=== PATIENT | female | born 1990 | race Caucasian/White ===

== ENCOUNTER 2017-09-28 13:38 | Emergency (ER) | payer OTHER ==
[2017-04-18 23:32] VITALS: Wt 79.4 kg
[~2017-09-28 13:38] MED LIST: HYDR2TAB4 PO; IBUP800T37 PO; PREN-127 PO
--- NOTE | 2017-09-28 13:52 | ER Report ---
History and Physical Time Seen By MD: 13:52 Hx. of Stated Complaint: REPORTS HEAVY VAGINAL BLEEDING. FIRST PERIOD SINCE OF CHILD OF APRIL. HPI/ROS CHIEF COMPLAINT: Heavy vaginal bleeding HISTORY OF PRESENT ILLNESS: 27-year-old female patient presents to emergency room with complaint of heavy vaginal bleeding. Patient states that this is her first menstrual cycle since she gave . She states that she's been having some cramping. She states that her period started on Monday, and then last night into today has had significant amounts of bleeding. She states that she doesn't believe she is . She states she is not taking any control. Her has been gone since beginning of August as he was in training for . Patient denies any fevers, chills, nausea, vomiting. Patient did have episode of diarrhea prior to coming to the emergency room. Patient states she's had some numbness to the left arm, stating that it seems to be the fourth and fifth fingers on the left hand. Patient has not taken any medication for this. REVIEW OF SYSTEMS: Respiratory: No cough, no dyspnea. Cardiovascular: No chest pain, no palpitations. Gastrointestinal: No vomiting, no abdominal pain. Musculoskeletal: No back pain. Allergies: Coded Allergies: No Known Drug Allergies (Unverified , 04/19/17) Home Meds Active Scripts Ketorolac Tromethamine (KETOROLAC TROMETHAMINE) 10 Mg Tab, 10 MG PO Q6H, #20 TAB Prov:RAUL VUONGSSE THEO 09/28/17 Reported Medications Vits W-Ca,Fe,Fa(<1MG) ( VITAMINS) 1 Each Tablet, 1 EACH PO DAILY, TAB 04/11/17 Discontinued Scripts Ibuprofen (IBUPROFEN) 800 Mg Tablet, 1 TAB PO Q8H, #30 TAB 0 Refills Take with food every 8 hours. Prov:AMANDA ELENA MD 04/20/17 Hydromorphone Hcl (HYDROMORPHONE HCL) 2 Mg Tablet, 2-4 MG PO Q4H for PAIN, #20 TAB 0 Refills Prov:AMANDA ELENA MD 04/20/17 Past Medical/Surgical History Patient denies any pertinent medical or surgical history. Reviewed Nurses Notes: Yes Hx Smoking: No Smoking Status: Never Smoker Exposure to Second Hand Smoke?: No Constitutional Vital Sign - Last 24 Hours 3/09/28/17 09/28/17 09/28/17 13:48 14:00 14:38 15:00 Temp 98.1 Pulse 63 63 63 Resp 18 B/P (MAP) 155/78 118/76 (90) 112/66 (81) 113/73 (86) Pulse Ox 97 97 99 O2 Delivery Room Air 09/28/17 09/28/17 09/28/17 15:30 16:00 16:15 Pulse 54 55 B/P (MAP) 106/79 (88) 103/65 (78) 112/76 (88) Pulse Ox 97 98 Physical Exam General Appearance: The patient is alert, has no immediate need for airway protection and no current signs of toxicity. ENT: Tympanic membranes are pearly-lundberg, auditory canals are patent, mucous membranes are moist. Respiratory: Chest is non tender, lungs are clear to auscultation. Cardiac: regular rate and rhythm Gastrointestinal: Abdomen is soft and non tender, no masses, bowel sounds normal. Musculoskeletal: Neck: Neck is supple and non tender. Extremities have full range of motion and are non tender. Skin: No rashes or lesions. DIFFERENTIAL DIAGNOSIS: After history and physical exam differential diagnosis was considered for dysmenorrhea, threatened , abnormal menses. Medical Decision Making Data Points Result Diagram: 09/28/17 1415 09/28/17 1415 Laboratory Hematology Test 09/28/17 14:15 Red Blood Count 4.99 M/uL (4.17-5.56) Mean Corpuscular Volume 83.0 fL (80.0-96.0) Mean Corpuscular Hemoglobin 28.3 pg (26.0-33.0) Mean Corpuscular Hemoglobin Concent 34.1 g/dL (32.0-36.0) Red Cell Distribution Width 13.4 % (11.5-14.5) Mean Platelet Volume 9.9 fL (7.2-11.1) Neutrophils (%) (Auto) 68.3 % (39.4-72.5) Lymphocytes (%) (Auto) 22.4 % (17.6-49.6) Monocytes (%) (Auto) 7.0 % (4.1-12.4) Eosinophils (%) (Auto) 1.6 % (0.4-6.7) Basophils (%) (Auto) 0.7 % (0.3-1.4) Nucleated RBC Relative Count (auto) 0.0 /100WBC Neutrophils # (Auto) 6.2 K/uL (2.0-7.4) Lymphocytes # (Auto) 2.0 K/uL (1.3-3.6) Monocytes # (Auto) 0.6 K/uL (0.3-1.0) Eosinophils # (Auto) 0.1 K/uL (0.0-0.5) Basophils # (Auto) 0.1 K/uL (0.0-0.1) Nucleated RBC Absolute Count (auto) 0.00 K/uL Prothrombin Time 13.2 seconds (12.0-14.4) Prothromb Time International Ratio 1.00 Activated Partial Thromboplast Time 26 seconds (23-35) Sodium Level 141 mmol/L (137-145) Potassium Level 3.9 mmol/L (3.5-5.0) Chloride Level 104 mmol/L (98-107) Carbon Dioxide Level 24 mmol/L (22-31) Blood Urea Nitrogen 13 mg/dl (7-18) Creatinine 0.80 mg/dl (0.52-1.04) Glomerular Filtration Rate Calc > 60.0 Random Glucose 119 mg/dl (75-110) Calcium Level 9.2 mg/dl (8.4-10.2) Total Bilirubin 0.6 mg/dl (0.2-1.3) Aspartate Amino Transf (AST/SGOT) 23 U/L (0-35) Alanine Aminotransferase (ALT/SGPT) 25 U/L (0-56) Alkaline Phosphatase 79 U/L (0-126) Total Protein 7.7 gm/dl (6.3-8.2) Albumin 4.5 g/dl (3.5-5.0) Human Chorionic Gonadotropin, Qual Negative (NEGATIVE) Chemistry Test 09/28/17 14:15 White Blood Count 9.1 k/uL (4.5-11.0) Red Blood Count 4.99 M/uL (4.17-5.56) Hemoglobin 14.1 g/dL (12.0-16.0) Hematocrit 41.4 % (34.0-47.0) Mean Corpuscular Volume 83.0 fL (80.0-96.0) Mean Corpuscular Hemoglobin 28.3 pg (26.0-33.0) Mean Corpuscular Hemoglobin Concent 34.1 g/dL (32.0-36.0) Red Cell Distribution Width 13.4 % (11.5-14.5) Platelet Count 243 K/uL (150-450) Mean Platelet Volume 9.9 fL (7.2-11.1) Neutrophils (%) (Auto) 68.3 % (39.4-72.5) Lymphocytes (%) (Auto) 22.4 % (17.6-49.6) Monocytes (%) (Auto) 7.0 % (4.1-12.4) Eosinophils (%) (Auto) 1.6 % (0.4-6.7) Basophils (%) (Auto) 0.7 % (0.3-1.4) Nucleated RBC Relative Count (auto) 0.0 /100WBC Neutrophils # (Auto) 6.2 K/uL (2.0-7.4) Lymphocytes # (Auto) 2.0 K/uL (1.3-3.6) Monocytes # (Auto) 0.6 K/uL (0.3-1.0) Eosinophils # (Auto) 0.1 K/uL (0.0-0.5) Basophils # (Auto) 0.1 K/uL (0.0-0.1) Nucleated RBC Absolute Count (auto) 0.00 K/uL Prothrombin Time 13.2 seconds (12.0-14.4) Prothromb Time International Ratio 1.00 Activated Partial Thromboplast Time 26 seconds (23-35) Glomerular Filtration Rate Calc > 60.0 Calcium Level 9.2 mg/dl (8.4-10.2) Total Bilirubin 0.6 mg/dl (0.2-1.3) Aspartate Amino Transf (AST/SGOT) 23 U/L (0-35) Alanine Aminotransferase (ALT/SGPT) 25 U/L (0-56) Alkaline Phosphatase 79 U/L (0-126) Total Protein 7.7 gm/dl (6.3-8.2) Albumin 4.5 g/dl (3.5-5.0) Human Chorionic Gonadotropin, Qual Negative (NEGATIVE) Coagulation Test 09/28/17 14:15 Prothrombin Time 13.2 seconds Prothromb Time International Ratio 1.00 Activated Partial Thromboplast Time 26 seconds EKG/Imaging Imaging Transvaginal pelvic ultrasound INDICATION: Vaginal bleeding. COMPARISON: None Available FINDINGS: Uterus measures 7.7 x 3.8 x 5.3 cm. The uterus is anteverted and mildly heterogeneous. No focal abnormality. Double wall endometrial stripe measures 11.1 and heterogeneous. No fluid is identified. No focal abnormality is appreciated. There is mild amount of free fluid in the cul-de-sac. This may be physiologic. Urinary bladder is empty. Pelvic vessels appear unremarkable on this examination. Right ovary measures 2.8 x 2.5 x 2.3 cm and shows normal blood flow and contains several small follicles. Left ovary measures 2.3 x 1.9 x 1.7 cm and shows normal blood flow and contains several small follicles. No adnexal masses. IMPRESSION: 1. The endometrium is heterogeneous. No discrete fluid or focal normality. The heterogeneity could be due to patient's menstrual cycle. However a follow-up pelvic ultrasound 6 weeks can evaluate for any persistent abnormality to suggest other etiology. 2. The exam is otherwise unremarkable. Report Dictated By: Bruce Connolly at 09/28/2017 3:49 PM Report E-Signed By: Bruce Connolly at 09/28/2017 3:53 PM ED Course/Re-evaluation ED Course Patient was admitted to an exam room, history and physical for pain. Differential diagnoses were considered. On examination patient had no abdominal tenderness, lungs are clear. A CBC, CMP, hCG were done. Lab results were unremarkable. Ultrasound was done of the pelvis. It showed some heterogeneous lining the endometrium. The recommended a repeat ultrasound in 6 weeks. Patient did receive a dose of Toradol. Patient states she is feeling improved. She received a liter of normal saline. We'll go ahead and discharge patient home at this time. She states Toradol every 6 hours as needed. She is to follow-up with her c4 planner, patient does have an appointment meant on Monday. Patient is return to the emergency room if condition worsens. Patient verbalized understanding and agreement with plan. Decision to Disposition Date: Sep 28, 2017 Decision to Disposition Time: 16:00 Depart Departure Latest Vital Signs Vital Signs Date Time Temp Pulse Resp B/P (MAP) Pulse Ox O2 Delivery O2 Flow Rate FiO2 09/28/17 16:15 112/76 (88) 09/28/17 16:00 55 98 09/28/17 13:48 98.1 18 Room Air Impression: Primary Impression: Dysmenorrhea Condition: Improved Disposition: HOME OR SELF-CARE New Scripts Ketorolac Tromethamine (KETOROLAC TROMETHAMINE) 10 Mg Tab 10 MG PO Q6H, #20 TAB Prov: EMILE VUONG 09/28/17 Patient Instructions: Dysmenorrhea (ED) Additional Instructions: Get plenty of rest. Increase fluid intake. Take the Toradol as needed for severe bleeding, it is the goal to decrease bleeding. Return to the ER if condition worsens. Follow up with your [employer] Area Supervisor in the next week. Radiologist recommends repeat ultrasound in 6 weeks to make sure that the endometrium has returned to normal. Return to the ER if condition worsens. EMILE VUONG Sep 28, 2017 13:52
[2017-09-28] MEDS ORDERED: NS(*) 0.9% 1000 ML BAG 1,000 ML IV ONE (14:02)
[2017-09-28 14:43] LABS: PLATELET COUNT, AUTOMATED 243 K/uL (150-450)
[2017-09-28] MEDS ORDERED: KETOROLAC TROM 10MG TAB PO ONE (15:40)
--- NOTE | 2017-09-28 15:57 | RADIOLOGY IMAGING REPORT ---
FACILITY: [facility] PATIENT NAME: Sana Levine : 1990 MR: [id number] V: [id number] EXAM DATE: ORDERING PHYSICIAN: EMILE VUONG TECHNOLOGIST: Location: [facility] [place] Patient: Sana Levine : 1990 Visit/Account:[id number] Date of Sevice: 09/28/2017 Transvaginal pelvic ultrasound INDICATION: Vaginal bleeding. COMPARISON: None Available FINDINGS: Uterus measures 7.7 x 3.8 x 5.3 cm. The uterus is anteverted and mildly heterogeneous. No focal abnor mality. Double wall endometrial stripe measures 11.1 and heterogeneous. No fluid is identified. No focal abno rmality is appreciated. There is mild amount of free fluid in the cul-de-sac. This may be physiologic. Urinary bladder is empty. Pelvic vessels appear unremarkable on this examination. Right ovary measures 2.8 x 2.5 x 2.3 cm and shows normal blood flow and contains several small follic les. Left ovary measures 2.3 x 1.9 x 1.7 cm and shows normal blood flow and contains several small follicl es. No adnexal masses. IMPRESSION: 1. The endometrium is heterogeneous. No discrete fluid or focal normality. The heterogeneity could be due to patient's menstrual cycle. However a follow-up pelvic ultrasound 6 weeks can evaluate for any persistent abnormality to suggest other etiology. 2. The exam is otherwise unremarkable. Report Dictated By: Bruce Connolly at 09/28/2017 3:49 PM Report E-Signed By: Bruce Connolly at 09/28/2017 3:53 PM WSN:[id number]
[2017-09-28] MEDS ORDERED: KET10 PO (15:59)
[2017-09-28 16:15] VITALS: BP 112/76
== END 2017-09-28 16:15 | disposition home or self-care (01) ==
LOC: ER 13:45
DX: N94.6 Dysmenorrhea, unspecified (principal)
CPT/HCPCS: 76830; 84703; 85025; 85610; 85730; 96360; 99284; J7030; 82040; 82247; 82310; 82374; 82435; 82565; 82947; 84075; 84132; 84155; 84295; 84450; 84460; 84520